=== PATIENT | female | born 1950 | race Caucasian/White ===

== ENCOUNTER 2019-12-21 15:27 | Emergency (ER) | payer MEDICARE, BC ==
[~2019-12-21] VITALS: Ht 162.6 cm; Wt 47.7 kg
[2019-12-21 16:14] LABS: CLARITY,URINE CLOUDY (Clear); COLOR,URINE YELLOW (Yellow); GLUCOSE, URINE NEGATIVE (Neg); KETONES,URINE 15 mg/dl (Neg); LEUKOCYTE ESTERASE ,URINE MODERATE (Neg); NITRITES, URINE POSITIVE (Neg); OCCULT BLOOD,URINE MODERATE (Neg); PROTEIN,URINE 100 mg/dl (Neg); UA COLLECTION TYPE CLN CATCH MIDSTREAM; UROBILINOGEN,URINE 0.2 E.U/dL (0.2-1.0)
[2019-12-21 16:19] LABS: BACTERIA,URINE 4+ /HPF (Neg); MUCUS STRANDS NONE SEEN /LPF (Neg); WBC,URINE TNTC /HPF (0-4)
[2019-12-21 16:20] LABS: SQUAMOUS EPITHELIAL CELL,UR FEW /LPF (FEW)
--- NOTE | 2019-12-21 17:31 | NUR ---
GIANLUCA Rose at bedside.
[2019-12-21] MEDS ORDERED: ondansetron/PF 4mg/2ml inj IV ONE (17:40)
[2019-12-21] MEDS ORDERED: CefTRIAXone/D5W-Rocephin 1gm 50 ML IV ONE (17:40)
[2019-12-21] MEDS ORDERED: normal saline 1000ML IV soln IVB ONE (17:40)
--- NOTE | 2019-12-21 18:04 | NUR ---
Pt given ice chips to see if she is able to tolerate.
[2019-12-21] MEDS ORDERED: CEPH500C2 PO (18:23)
[2019-12-21] MEDS ORDERED: ONDA4TAB6 PO (18:23)
[2019-12-21] MEDS ORDERED: PHEN-824 PO (18:23)
[2019-12-21 18:46] VITALS: BP 128/70
== END 2019-12-21 18:49 | disposition home or self-care (01) ==
LOC: ER 15:27
DX: N39.0 Urinary tract infection, site not specified (principal); R11.2 Nausea with vomiting, unspecified; M54.5 Low back pain; R35.0 Frequency of micturition; Z79.899 Other long term (current) drug therapy
CPT/HCPCS: 81001; 87077; 87088; 87186; 96365; 96375; 99284; J0696; J2405; J7030